=== PATIENT | male | born 1960 | race Caucasian/White ===

== ENCOUNTER 2019-11-12 14:18 | Inpatient (IN) | payer BC, MEDICAID ==
[~2019-11-12] VITALS: Ht 167.6 cm; Wt 95.3 kg
--- NOTE | 2019-11-12 14:41 | NUR ---
PATIENT WAS MSE BY DR BILL IN ROOM 04A. PATIENT A & O X4.
[2019-11-12 14:51] LABS: *BILIRUBIN,URIN NEGATIVE (NEGATIVE); *BLOOD, URINE 3+ (NEGATIVE); *CLARITY,URINE SLIGHTLY CLOUDY (CLEAR); *COLOR,URINE YELLOW (YELLOW); *KETONES,URINE 1+ (NEGATIVE); *UROBILINOGEN,URINE 0.2 E.U./dl (NORMAL); LEUKOCYTE ESTERASE ,URINE NEGATIVE (NEGATIVE); NITRITE, URINE NEGATIVE (NEGATIVE); PH,URINE 5.5 (5.0-8.0); UGLUCOSE NEGATIVE (NEGATIVE)
[2019-11-12 14:56] LABS: BASOPHILS % (AUTO) 0.5 % (0.0-2.0); EOSINOPHILS % (AUTO) 0.5 % (0.0-7.0); HEMATOCRIT 43.1 % (36.7-47.1); HEMOGLOBIN 14.5 g/dL (12.5-16.3); LYMPHOCYTES # (AUTO) 0.8 K/uL (20.0-40.0); LYMPHOCYTES % (AUTO) 10.6 % (20.5-51.5); MEAN CORPUSCULAR HEMOGLOBIN 31.3 uug (23.8-33.4); MEAN CORPUSCULAR HGB CONC 34 g/dL (32.5-36.3); MEAN CORPUSCULAR VOLUME 93.2 fL (73.0-96.2); MONOCYTES # (AUTO) 0.4 K/uL (2.0-10.0); MONOCYTES % (AUTO) 5.1 % (0.0-11.0); NEUTROPHILS # (AUTO) 6.4 K/uL (1.8-8.9); NEUTROPHILS % (AUTO) 83.3 % (38.5-71.5); PLATELET COUNT (AUTO) 208 K/uL (152-348); RED BLOOD CELL COUNT(AUTO) 4.62 MIL/uL (4.06-5.63); WHITE BLOOD COUNT (AUTO) 7.7 K/uL (3.6-10.2)
[2019-11-12 15:03] LABS: CREATININE 1.3 mg/dL (0.6-1.3); POTASSIUM 4.6 mmol/L (3.5-5.1)
[2019-11-12 15:09] LABS: BILIRUBIN,DIRECT 0.1 mg/dL (0.0-0.2); BILIRUBIN,TOTAL 0.7 mg/dL (0.2-1.0); TOTAL PROTEIN, SERUM 7.7 g/dL (6.4-8.2)
[2019-11-12 15:14] LABS: MUCUS,URINE MANY /LPF (0-FEW); RBC,URINE 80-100 /HPF (0-3); URIC ACID CRYSTALS,URINE FEW /HPF (NONE SEEN)
[2019-11-12] MEDS ORDERED: KETOROLAC TROMETHAMINE 30 MG INJ ONE ×2 (15:26→17:18)
[2019-11-12] MEDS: KETOROLAC TROMETHAMINE 30 MG INJ IVP ONE ×2 (15:27→16:21)
[2019-11-12] MEDS ORDERED: ASPI81TA31 PO (15:31)
[2019-11-12] MEDS ORDERED: FISH OIL (15:31)
[2019-11-12] MEDS ORDERED: VALTREX (15:31)
[2019-11-12] MEDS ORDERED: METF-440 PO (15:31)
[2019-11-12] MEDS ORDERED: LIPITOR (15:31)
[2019-11-12] MEDS ORDERED: IV NORMAL SALINE 1000 ML BAG IV ONE (15:45)
[2019-11-12] MEDS ORDERED: KETOROLAC TROMETHAMINE 30 MG INJ IVP ONE (17:15)
--- NOTE | 2019-11-12 17:30 | NUR ---
HOSPITAL SANDWICH PROVIDED PER PT REQUEST.
[2019-11-12] MEDS ORDERED: IV D5 1/2 NS 1000 ML 1,000 ML IV PRN (17:41)
[2019-11-12] MEDS ORDERED: ONDANSETRON 4 MG/2 ML VIAL IV PRN (17:45)
[2019-11-12] MEDS ORDERED: MORPHINE SULFATE 2 MG/1 ML DISP.SYRIN IV PRN (17:45)
[2019-11-12] MEDS ORDERED: INSULIN REGULAR, HUMAN 300 UNIT/3 ML VIAL SQ PRN (17:45)
[2019-11-12] MEDS ORDERED: ACETAMINOPHEN 325 MG TABLET PO PRN (17:45)
[2019-11-12] MEDS ORDERED: DEXTROSE 50% 50 ML DISP.SYRIN IV PRN (17:45)
[2019-11-12] MEDS ORDERED: KETOROLAC TROMETHAMINE 30 MG INJ IM PRN (18:00)
[2019-11-12] MEDS ORDERED: VANCOMYCIN IV 750 MG in IV DEXTROSE 5% 250 ML IV SCH (18:00)
--- NOTE | 2019-11-12 18:00 | NUR ---
PT TRANSFERED TO FLOOR IN STABLE CONDITION.
[2019-11-12 18:42] VITALS: BP 134/80
[2019-11-12] MEDS: LEVOFLOXACIN 750MG/D5W 750 MG in PREMIXED 1 EACH IV SCH (18:45)
--- NOTE | 2019-11-12 19:00 | NUR ---
NEW ADMIT PATIENT RECEIVED INTO CARE, LAYING IN BED, WATCHING TELEVISION. PATIENT HAS NO COMPLAINTS OF PAIN OR DISCOMFORT AT THIS TIME. NO SIGNS OR SYMPTOMS OF ACUTE DISTRESS OR DISCOMFORT NOTED OR OBSERVED BY NURSE. ALL PERTINENT HISTORY TAKEN AND NOTED. ALL SAFETY AND FALL PRECAUTION MEASURES ARE IN PLACE. CALL LIGHT AND PERSONAL ITEMS ARE WITHIN REACH AT ALL TIMES. WILL CONTINUE TO MONITOR AND ASSESS.
[2019-11-12 20:00] VITALS: BP 129/71
[2019-11-12] MEDS: BLOOD SUGAR DIAGNOSTIC 1 EACH STRIP VI SCH (22:27)
[2019-11-13] VITALS (9 sets, daily range): BP systolic 124–149; BP diastolic 75–83
--- NOTE | 2019-11-13 06:00 | NUR ---
Patient slept intermittently throughout night with no complaints of pain or discomfort verbalized, or noted/observed by nurse. Prescribed IV antibiotics provided as ordered and tolerated well by patient, with no adverse side effects verbalized or noted/observed by nurse. All safety and fall precaution measures remain in place. Call light and personal items within reach at all times.
[2019-11-13] MEDS ORDERED: IOHEXOL-240 MG , 50 ML VIAL IV ONE (06:09)
[2019-11-13] MEDS ORDERED: MIDAZOLAM HCL 2 MG/2 ML VIAL ONE (06:20)
[2019-11-13] MEDS ORDERED: FENTANYL CITRATE 250 MCG/5 ML AMPUL ONE (06:21)
[2019-11-13] MEDS: BLOOD SUGAR DIAGNOSTIC 1 EACH STRIP VI SCH ×4 (06:31→21:00)
--- NOTE | 2019-11-13 06:35 | NUR ---
Patient transported to surgery for scheduled stent placement.
--- NOTE | 2019-11-13 08:00 | NUR ---
RECEIVED SHIFT REPORT. PT IN SURGURY AT THIS TIME.
--- NOTE | 2019-11-13 09:00 | NUR ---
RECEIVED PT FROM OR. NO ACUTE DISTRESS OR SOB NOTED. NEW ORDER PLACED BY DR RODRIGUES FOR CONSISTENT CARB(DIABETIC DIET). PT RESTING COMFORTABLY IN BED. ALERT AND ORIENTED X4. VS WNL. ORDERS FAXED TO PHARMACY BY [employer]. WILL CONTINUE TO MONITOR FOR SAFETY AND COMFORT.
--- NOTE | 2019-11-13 10:00 | NUR ---
DR RODRIGUES CALLED. PER DR RODRIGUES IF PT FEELS LIKE GOING HOME HE CAN BE DISCHARGED WITH FURTHER EVALUATION FROM [employer].
[2019-11-13 10:12] LABS: BASOPHILS % (AUTO) 0.4 % (0.0-2.0); EOSINOPHILS # (AUTO) 0.1 K/uL (0.0-0.7); EOSINOPHILS % (AUTO) 1.6 % (0.0-7.0); HEMATOCRIT 39.8 % (36.7-47.1); HEMOGLOBIN 13.4 g/dL (12.5-16.3); LYMPHOCYTES # (AUTO) 1.6 K/uL (20.0-40.0); MEAN CORPUSCULAR HEMOGLOBIN 31.6 uug (23.8-33.4); MEAN CORPUSCULAR HGB CONC 34 g/dL (32.5-36.3); MEAN CORPUSCULAR VOLUME 93.7 fL (73.0-96.2); MONOCYTES # (AUTO) 0.5 K/uL (2.0-10.0); MONOCYTES % (AUTO) 9.9 % (0.0-11.0); NEUTROPHILS # (AUTO) 2.9 K/uL (1.8-8.9); NEUTROPHILS % (AUTO) 57.1 % (38.5-71.5); PLATELET COUNT (AUTO) 183 K/uL (152-348); RED BLOOD CELL COUNT(AUTO) 4.24 MIL/uL (4.06-5.63)
[2019-11-13 10:19] LABS: BILIRUBIN,TOTAL 0.4 mg/dL (0.2-1.0); CREATININE 1.6 mg/dL (0.6-1.3); MAGNESIUM 1.8 mg/dL (1.8-2.4); PHOSPHOROUS 3.3 mg/dL (2.5-4.9); POTASSIUM 4.2 mmol/L (3.5-5.1); TOTAL PROTEIN, SERUM 6.4 g/dL (6.4-8.2)
[2019-11-13 10:27] LABS: THYROID STIMULATING HORMONE 4.634 mIU/mL (0.358-3.740)
--- NOTE | 2019-11-13 12:30 | NUR ---
PT TOLERATED LUNCH WELL. PT'S URINE IS CLEARING UP EVERY TIME HE VOIDS. PT STATES HAVING SORENESS ON RIGHT FLANK. NO ACUTE DISTRESS NOTED. NO SOB NOTED. PT ON RA WITH SATS OT 98%. PT ALERT AND ORIENTED X4. PLEASANT AND COOPERATIVE. PT HAS NOT HAD A BM AT THIS TIME. WILL CONTINUE TO MONITOR FOR SAFETY AND COMFORT.
[2019-11-13] MEDS ORDERED: METOCLOPRAMIDE HCL 10 MG/2 ML VIAL IV ONE (13:44)
[2019-11-13] MEDS ORDERED: ONDANSETRON 4 MG/2 ML VIAL IV ONE (13:44)
[2019-11-13] MEDS ORDERED: LIDOCAINE-MPF 2% 5 ML VIAL MC ONE (13:44)
[2019-11-13] MEDS ORDERED: SEVOFLURANE 250 ML BOTTLE IH ONE (13:44)
[2019-11-13] MEDS ORDERED: PROPOFOL 200 MG/20 ML BOTTLE IV ONE (13:44)
[2019-11-13] MEDS ORDERED: CEFAZOLIN 1 G VIAL MC ONE (13:44)
[2019-11-13] MEDS: IV NS 1000 ML 1,000 ML IV PRN (14:15)
[2019-11-13] MEDS: LEVOFLOXACIN 750MG/D5W 750 MG in PREMIXED 1 EACH IV SCH (17:31)
--- NOTE | 2019-11-13 18:00 | NUR ---
PT RESTING COMFORTABLY IN BED. PT CURRENTLY COMPLAINS OF PAIN IN PENIS, TESTICLES AND BACK WHEN URINATING, [employer] REPAIRER AWARE STATING TO MANAGE WITH PAIN MEDICATIONS. PT ALERT AND ORIENTED X4. BED LOCKED AND IN LOW POSITION. PT IS DIET AND MEDICATION COMPLIANT. WILL ENDORSE TO INCOMING SHIFT ACCORDINGLY.
--- NOTE | 2019-11-13 20:00 | NUR ---
AWAKE,[id number] VOIDING GOOD.ONLY COMPLAINED OF RIGHT FLANK PAIN UPON URINATION,REFUSED TO TAKE PAIN PILL.ENCOURAGE TO DRINK FLUIDSOFFERED PRUNE JUICE FOR CONSTIPATION.
[2019-11-14] MEDS: IV NS 1000 ML 1,000 ML IV PRN (05:50)
[2019-11-14] MEDS: BLOOD SUGAR DIAGNOSTIC 1 EACH STRIP VI SCH ×2 (05:51→11:16)
[2019-11-14 05:56] VITALS: BP 146/82
[2019-11-14 07:10] LABS: BASOPHILS % (AUTO) 0.4 % (0.0-2.0); EOSINOPHILS # (AUTO) 0.1 K/uL (0.0-0.7); EOSINOPHILS % (AUTO) 2.1 % (0.0-7.0); HEMATOCRIT 40.6 % (36.7-47.1); HEMOGLOBIN 13.7 g/dL (12.5-16.3); LYMPHOCYTES # (AUTO) 1.6 K/uL (20.0-40.0); LYMPHOCYTES % (AUTO) 26.2 % (20.5-51.5); MEAN CORPUSCULAR HEMOGLOBIN 31.3 uug (23.8-33.4); MEAN CORPUSCULAR HGB CONC 34 g/dL (32.5-36.3); MEAN CORPUSCULAR VOLUME 92.9 fL (73.0-96.2); MONOCYTES # (AUTO) 0.5 K/uL (2.0-10.0); MONOCYTES % (AUTO) 8.3 % (0.0-11.0); NEUTROPHILS # (AUTO) 3.9 K/uL (1.8-8.9); PLATELET COUNT (AUTO) 182 K/uL (152-348); RED BLOOD CELL COUNT(AUTO) 4.37 MIL/uL (4.06-5.63); WHITE BLOOD COUNT (AUTO) 6.2 K/uL (3.6-10.2)
[2019-11-14 07:35] LABS: CREATININE 1.3 mg/dL (0.6-1.3)
--- NOTE | 2019-11-14 08:15 | NUR ---
PT RESTING COMFORTABLY IN BED. URINE IS CLEAR YELLOW. PT ALERT AND ORIENTED X4. BED LOCKED AND IN LOW POSITION. PT IS DIET AND MEDICATION COMPLIANT. WILL ENDORSE TO INCOMING SHIFT ACCORDINGLY.
[2019-11-14 11:06] VITALS: BP 135/82
[2019-11-14] MEDS ORDERED: LEVO750T21 PO (11:37)
[2019-11-14] MEDS ORDERED: TRAM50TA2 PO (11:37)
--- NOTE | 2019-11-14 13:27 | NUR ---
PT DISCHARGED. PT ALERT AND ORIENTED X4. NO ACUTE DISTRESS OR SOB NOTED. PT HAS GOOD STEADY GAIT. IV REMOVED INTACT. DISCHARGE INSTRUCTIONS AND PRESCRIPTION GIVEN TO PATIENT WITH GOOD UNDERSTANDING. BELONGINGS RETURNED AND FORM SIGNED. PT ESCORTED TO PRIVATE TRANSPORT BY [facility] STAFF.
== END 2019-11-14 13:45 | disposition home or self-care (01) | DRG 465 ==
LOC: ER 14:18 → MEDSURG3 17:46
PROVIDERS: ADMIT Nurse Practitioner Acute Care; ATTEND Nurse Practitioner Acute Care
PROC: 0T768DZ Dilation of Right Ureter with Intraluminal Device, Via Natural or Artificial Opening Endoscopic (ICD-10-PCS; principal; 2019-11-13)
DX: N13.2 Hydronephrosis with renal and ureteral calculous obstruction (principal); N17.0 Acute kidney failure with tubular necrosis; K57.30 Diverticulosis of large intestine without perforation or abscess without bleeding; E02 Subclinical iodine-deficiency hypothyroidism; E78.5 Hyperlipidemia, unspecified; E66.9 Obesity, unspecified; E44.1 Mild protein-calorie malnutrition; K42.9 Umbilical hernia without obstruction or gangrene; Z87.442 Personal history of urinary calculi; I10 Essential (primary) hypertension; E11.9 Type 2 diabetes mellitus without complications; Z79.84 Long term (current) use of oral hypoglycemic drugs; K44.9 Diaphragmatic hernia without obstruction or gangrene; I70.0 Atherosclerosis of aorta; N40.0 Benign prostatic hyperplasia without lower urinary tract symptoms; N30.90 Cystitis, unspecified without hematuria
CPT/HCPCS: 36415; 70030-TC; 71045; 83690; 83735; 84100; 84443; 85025; 85730; 87086; 93005; A4663; C1713; G0378; J0690; J1815; J1885; J1956; J2250; J2405; J2765; J3010; J3490; J7030; J7050; Q9966